=== PATIENT | male | born 1950 | race Caucasian/White ===

== ENCOUNTER 2023-09-10 00:41 | Day surgery (SDC) | payer MEDICARE, SELFPAY ==
[2023-09-02 15:12] VITALS: BMI 26.2
--- NOTE | 2023-09-07 11:37 | PC.NURSE ---
Spoke with patient regarding medication Eliquis. Pt. verbalizes understanding that the last dose of Eliquis is to be taken on 09/07/2023 and the Endoscopist will instruct them when to restart after the procedure.
[2023-09-10 10:23] VITALS: BP 147/86; PULSE 67; RESP 18; TEMP 35.8; O2SAT 98; BMI 26.4
[2023-09-10] MEDS: LACTATED RINGERS 1,000 ML 150 ML IV CONT (10:34)
--- NOTE | 2023-09-10 10:35 | WPDANESEPPF ---
Anes - Initial Pre Proc Eval Procedure: Operation Date: 09/10/23 11:30 Proposed Procedures p Esophagogastroduodenoscopy&Screen Colon - Celso Doyle MD Date/Time: 09/10/23 10:35 Surgeon: Celso Doyle MD Pre Op Diagnosis: Anemia Neoplasm screening Patient Data Age: 73 Gender: M Height: 1.91 m Weight: 95.7 kg Last Vital Signs Temp 96.5 F L 09/10/23 10:23 Pulse 67 09/10/23 10:23 Resp 18 09/10/23 10:23 BP 147/86 H 09/10/23 10:23 Pulse Ox 98 09/10/23 10:23 O2 Del Method Room Air 09/10/23 10:23 Allergies Allergy/AdvReac Type Severity Reaction Status Date / Time No Known Allergies Allergy Verified 09/10/23 10:21 Home Medications Medication Instructions Recorded Confirmed Type Adults Multivitamin 1 tab-cap PO DAILY 09/02/23 09/10/23 History apixaban 5 mg tablet (Eliquis) 5 mg PO BID 09/02/23 09/10/23 History diltiazem HCl 180 mg 180 mg PO DAILY 09/02/23 09/10/23 History tablet,extended release 24 hr ezetimibe 10 mg tablet 10 mg PO DAILY 09/02/23 09/10/23 History icosapent ethyl 1 gram capsule 1 g PO BID 09/02/23 09/10/23 History Patient hx anesthesia problems: none Family hx anesthesia problems: none Results Review: All pre-operative results and documents have been reviewed as part of the pre-operative evaluation. [facility] Social History Social History Smoking status: Never smoker Alcohol intake: current Substance use: never Substance use type: does not use Living arrangements: with family Spiritual care concerns: No Anes - Eval Final PreProcedure Day of Procedure 09/10/23 10:36 Patient weight: normal Heart: regular rate and rhythm Lungs: clear to auscultation Airway: Mallampati scale class II Neurological: alert and oriented Last oral intake: >/= 8 hours ASA classification: II Emergent: no Anesthetic plan: proceed Anesthesia type and monitoring: general GIVS and standard monitoring Results Review: All pre-operative results and documents have been reviewed as part of the pre-operative evaluation. Pt very active w treadmill walking, biking, wts, no cp or sob. Hx of afib, s/p ablation 03/2022, audibly in NSR. Informed Consent: The patient's anesthetic plan and its attendant risks and benefits were discussed with the patient/family/POA. Questions were solicited and answers provided to the satisfaction of the patient/family/POA.
--- NOTE | 2023-09-10 11:23 | PM.HPGS ---
History of Present Illness History of Present Illness Consent: Risks, benefits, and alternatives have been discussed and questions answered. Patient agrees to proceed with procedure. Chief complaint: Anemia Neoplasm screening Narrative: Juan Burgos is a 73 year old male with mild anemia hgb 12.5, no overt gib, his last colonoscopy 11 years ago. He is on eliquis Review of Systems Review of Systems: All systems reviewed & are unremarkable except as noted in HPI and below PMFSH Past Medical History Medical History (Updated 09/10/23 @ 11:28 by Celso Doyle MD) Anemia Colon cancer screening Social History Social History Smoking status: Never smoker Alcohol intake: current Substance use: never Substance use type: does not use Living arrangements: with family Spiritual care concerns: No Meds Home Medications and Allergies Home Medications Medication Instructions Recorded Confirmed Type Adults Multivitamin 1 tab-cap PO DAILY 09/02/23 09/10/23 History apixaban 5 mg tablet (Eliquis) 5 mg PO BID 09/02/23 09/10/23 History diltiazem HCl 180 mg 180 mg PO DAILY 09/02/23 09/10/23 History tablet,extended release 24 hr ezetimibe 10 mg tablet 10 mg PO DAILY 09/02/23 09/10/23 History icosapent ethyl 1 gram capsule 1 g PO BID 09/02/23 09/10/23 History Allergies Allergy/AdvReac Type Severity Reaction Status Date / Time No Known Allergies Allergy Verified 09/10/23 10:21 Vital Signs Vital Signs - 24 hr 09/10/23 10:23 Temperature 96.5 F L Pulse Rate 67 Respiratory Rate 18 Blood Pressure 147/86 H Pulse Oximetry 98 Oxygen Delivery Room Air Exam Const: General: comfortable and no acute distress HENMT: Face/Nose/Sinus: Normal nares present Eyes: General: appearance normal, both eyes and all related structures Neck: Neck: no JVD Resp: Auscultation: clear to auscultation bilaterally Cardio: Rate: regular rate Rhythm: regular rhythm GI: Inspection: non-distended GI Palp: Yes Soft to palpation Skin: General skin exam: normal color Neuro: General: gait normal Speech: normal speech Extrem: General: normal to inspection Psych: Mental Status: mental status grossly normal Assessment and Plan Assessment and plan (1) Anemia: Code(s): D64.9 - Anemia, unspecified Status: Acute Assessment and Plan: egd no overt gib also noted that he is on eliquis (2) Colon cancer screening: Code(s): Z12.11 - Encounter for screening for malignant neoplasm of colon Status: Acute Assessment and Plan: colonoscopy
--- NOTE | 2023-09-10 11:55 | SUR.OPER ---
EGD START TIME 1137, END TIME 1140. COLONOSCOPY START TIME 1146, END TIME 1154.
[2023-09-10 12:00] VITALS: BP 125/71; PULSE 61; RESP 16; O2SAT 100
[2023-09-10 12:10] VITALS: BP 132/80; PULSE 60; RESP 16; O2SAT 100
[2023-09-10 12:20] VITALS: BP 156/81; PULSE 58; RESP 21; O2SAT 100
== END 2023-09-10 12:27 | disposition home or self-care (01) ==
PROVIDERS: PCP Family Medicine; Visit Provider Internal Medicine Gastroenterology
PROC: 0DJ08ZZ Inspection of Upper Intestinal Tract, Via Natural or Artificial Opening Endoscopic (ICD-10-PCS; CPT 43235; principal; 2023-09-10 11:30)
DX: Z12.11 Encounter for screening for malignant neoplasm of colon (principal); D12.2 Benign neoplasm of ascending colon; K64.8 Other hemorrhoids; K29.50 Unspecified chronic gastritis without bleeding; D64.9 Anemia, unspecified; Z79.01 Long term (current) use of anticoagulants
CPT/HCPCS: 45385; 43239; 88305; 88342; J2001; J2704; J7120